=== PATIENT | female | born 1975 | race Two or more races ===

== ENCOUNTER 2016-11-25 14:51 | Emergency (ER) | payer MEDICAID ==
[~2016-11-25] VITALS: Ht 152.4 cm; Wt 76.7 kg
[2016-11-25 15:20] LABS: Hematocrit 42.2 % (36.0-46.0); Hemoglobin 14.3 g/dL (12.2-16.2); Mean Corpuscular Hemoglobin 28.7 pg (28.0-32.0); Mean Corpuscular Volume 84.5 fL (80.0-100.0); Mean Platelet Volume 9.7 fL (7.4-10.4); Platelet Count (auto) 263 10^3/uL (140-450); Red Cell Distribution Width 13.7 % (11.6-16.0); SUSPECT VIEW TRANSMISSION; White Blood Cell 16.8 10^3/uL (4.4-10.8)
[2016-11-25 15:28] LABS: Metamyelocytes % 0; Myelocytes % 0; Promyelocytes % 0; Reactive Lymphocytes 0
[2016-11-25 17:24] LABS: Platelet Estimate Adequate; RBC Morphology Normal
[2016-11-25] MEDS ORDERED: PHENAZOPYRIDINE HCL 100 MG TAB PO ONE (18:00)
[2016-11-25] MEDS ORDERED: cefTRIAXone SOD 1,000 MG VL IM ONE (18:00)
[2016-11-25 18:03] LABS: Urine Bilirubin Negative (Negative); Urine Color Yellow (Yellow); Urine Glucose Normal (Normal); Urine Nitrite Negative (Negative); Urine RBC 49 /hpf (0 - 4); Urine Urobilinogen Normal (Negative); Urine WBC Clumps PRESENT /hpf (None Seen); Urine pH 6.5 (5.0-8.0)
[2016-11-25 18:04] LABS: Urine Blood 2+ /uL (Negative); Urine Ketone 1+ (Negative)
[2016-11-25 18:25] VITALS: BP 124/68
== END 2016-11-25 18:44 | disposition home or self-care (01) ==
LOC: ER 14:53
DX: N39.0 Urinary tract infection, site not specified (principal)
CPT/HCPCS: 36415 ×2; 81001 ×2; 81002 ×2; 85007 ×2; 85027 ×2; 96372 ×2; 99284; J0696 ×2